=== PATIENT | female | born 1965 | race Caucasian/White ===

== ENCOUNTER 2022-03-15 15:10 | Inpatient (IN) | payer SELFPAY ==
[~2022-03-15] VITALS: Ht 154.9 cm; Wt 62.6 kg
--- NOTE | 2022-03-15 15:25 | NUR ---
UA SPECIMEN COLLECTED
--- NOTE | 2022-03-15 15:26 | NUR ---
BIBS FOR C/O RIGHT SIDED WEAKNESS 1HR DIRECTOR DIGITAL CATALOGUE. ELEVATED BP 206/112. PT HAS EQUAL GRIZZLYMAN BILATERALLY, ABLE TO AMBULATE ON HER OWN. A&OX4. ATTACHED TO MONITOR, MD GARDNER. DR BULL AT BEDSIDE. AWAITING MD BYRD.
--- NOTE | 2022-03-15 15:32 | NUR ---
IV ESTABLISHED L AC 20G. LABS DRAWN AND SENT.
[2022-03-15] MEDS ORDERED: LABETALOL HCL IV 100MG VIAL ONE (15:42)
[2022-03-15] MEDS ORDERED: LORAZEPAM INJ 2 MG/ML VIAL ONE (15:43)
[2022-03-15 15:51] LABS: BASOPHILS % (AUTO) 0.5 % (0.0-2.0); EOSINOPHILS % (AUTO) 0.5 % (0.0-6.0); HEMATOCRIT 38 % (33-45); HEMOGLOBIN 12.7 g/dL (11.5-14.8); LYMPHOCYTES # (AUTO) 2.4 K/uL (0.8-4.8); LYMPHOCYTES % (AUTO) 38.1 % (20.0-44.0); MEAN CORPUSCULAR HGB CONC 34 g/dl (31.0-36.0); MEAN CORPUSCULAR VOLUME 94 fL (82-100); MONOCYTES # (AUTO) 0.5 K/uL (0.1-1.30); MONOCYTES % (AUTO) 7.5 % (2.0-12.0); NEUTROPHILS # (AUTO) 3.4 K/uL (1.8-8.9); NEUTROPHILS % (AUTO) 53.4 % (43.0-81.0); PLATELET COUNT (AUTO) 254 K/uL (150-450); RED BLOOD CELL COUNT(AUTO) 4.05 MIL/uL (4.0-5.2); WHITE BLOOD COUNT (AUTO) 6.4 K/uL (4.3-11.0)
[2022-03-15] MEDS ORDERED: LORAZEPAM INJ 2 MG/ML VIAL IV ONE (16:00)
[2022-03-15] MEDS ORDERED: LABETALOL HCL IV 100MG VIAL IV ONE ×2 (16:00→17:30)
[2022-03-15 16:07] LABS: ALANINE AMINOTRANSFERASE 27 U/L (12-78); ALBUMIN 4.1 g/dL (3.4-5.0); ALKALINE PHOSPHATASE 97 U/L (46-116); ASPARTATE AMINOTRANSFERASE 17 U/L (15-37); BILIRUBIN,DIRECT 0.1 mg/dL (0.0-0.2); BILIRUBIN,TOTAL 0.3 mg/dL (0.2-1.0); CALCIUM, SERUM 9.2 mg/dL (8.5-10.1); CARBON DIOXIDE 32 mmol/L (21-32); CHLORIDE 98 mmol/L (98-107); GLUCOSE 116 mg/dL (74-106); POTASSIUM 3.5 mmol/L (3.5-5.1); SODIUM SERUM 133 mmol/L (136-145); TOTAL PROTEIN, SERUM 7.8 g/dL (6.4-8.2); UREA NITROGEN, BLOOD 18 mg/dL (7-18)
--- NOTE | 2022-03-15 16:09 | NUR ---
PATIENT RETURNED FROM CT VIA [facility]
[2022-03-15] MEDS ORDERED: IV NS 0.9% 250 ML IV ONE (16:19)
[2022-03-15] MEDS ORDERED: CT SWABBABLE VALVE TRANS SET 1 EA INFUS.SET MC ONE (16:19)
[2022-03-15] MEDS ORDERED: IOHEXOL-350 100 ML VIAL IV ONE (16:19)
--- NOTE | 2022-03-15 16:19 | NUR ---
CALLED CODE STROKE
--- NOTE | 2022-03-15 16:21 | NUR ---
PT TO CT ON GURNEY VIA ACLS PROTOCALS
--- NOTE | 2022-03-15 16:24 | NUR ---
TELE NEUROLOGIST IS BISHNU HENRIQUEZ
--- NOTE | 2022-03-15 16:29 | NUR ---
PT BACK FROM CT.
--- NOTE | 2022-03-15 16:41 | NUR ---
COVID TEST COLLECTED AND SENT
--- NOTE | 2022-03-15 16:53 | NUR ---
DR. JOSEPH SPEAKING WITH DR. BULL
[2022-03-15] MEDS ORDERED: LABETALOL 20 MG/4 ML VIAL IV ONE (17:00)
[2022-03-15] MEDS ORDERED: ASPIRIN 325 MG TABLET ONE (17:23)
[2022-03-15] MEDS ORDERED: ASPIRIN 325 MG TABLET PO ONE (17:30)
--- NOTE | 2022-03-15 18:07 | NUR ---
ROOM 328-2
[2022-03-15] MEDS ORDERED: hydrALAZINE HCL IV 20 MG VIAL ONE (18:12)
[2022-03-15] MEDS ORDERED: hydrALAZINE HCL IV 20 MG VIAL IV ONE (18:30)
--- NOTE | 2022-03-15 18:48 | NUR ---
REPORT GIVEN TO NURSE SHANON FOR ALPES[facility]
--- NOTE | 2022-03-15 19:08 | NUR ---
[facility] CALLED BEVELING MACHINE OPERATOR PAGED.
--- NOTE | 2022-03-15 19:29 | NUR ---
PT TRANSPORTED TO 3W WITH ACLS PROTOCOL IN PLACE
[2022-03-15 20:00] VITALS: BP 136/89
--- NOTE | 2022-03-15 20:00 | NUR ---
TANK BUILDER AND ERECTORROVING HAULER NOTES: RECEIVED PATIENT VIA GURNEY FROM ER ON STABLE CONDITION, PATIENT WAS PLACED IN BED COMFORTABLY ON ROOM AIR SKIN ASSESSMENT DONE NO SKIN ISSUES WAS NOTED, INVENTORY LIST WAS DONE AND DOCUMENTED, ORIENTED TO PLACE, REMIND PATIENT TO USE CALL LIGHTS WHEN NEEDED ASSISTANCE ON TELE MONITORING SR-72, NO COMPLAIN OF PAIN AND DISCOMFORT , AMBULATORY BRP WITH SUPERVISION, PATIENT KEPT CLEAN AND DRY ALL NEEDS MET WILL CONTINUE TO MONITOR.
[2022-03-15] MEDS ORDERED: ONDANSETRON HCL/PF 4 MG/2 ML VIAL IVP PRN (20:30)
[2022-03-15] MEDS ORDERED: ACETAMINOPHEN 325 MG TABLET PO PRN (20:30)
[2022-03-15] MEDS ORDERED: MAGNESIUM HYDROXIDE 30 ML UDC PO PRN (20:30)
[2022-03-15] MEDS ORDERED: ZOLPIDEM TARTRATE 5 MG TABLET PO PRN (20:30)
[2022-03-15] MEDS ORDERED: MAG HYDROX/AL HYDROX/SIMETH 30 ML UDC PO PRN (20:30)
[2022-03-15] MEDS ORDERED: Z GUARD REMEDY 4 OZ OINT TP PRN (20:30)
[2022-03-15] MEDS: BLOOD SUGAR DIAGNOSTIC 1 EACH STRIP IN SCH (22:00)
[2022-03-15] MEDS: ATORVASTATIN 40 MG TABLET PO SCH (23:18)
--- NOTE | 2022-03-15 23:36 | NUR ---
RN NOTES: BS-114- NO INSULIN GIVEN PER SLIDING SCALE
[2022-03-15 23:59] LABS: BASOPHILS % (AUTO) 0.6 % (0.0-2.0); EOSINOPHILS % (AUTO) 0.4 % (0.0-6.0); HEMATOCRIT 35 % (33-45); HEMOGLOBIN 11.7 g/dL (11.5-14.8); LYMPHOCYTES # (AUTO) 2.4 K/uL (0.8-4.8); MEAN CORPUSCULAR HGB CONC 34 g/dl (31.0-36.0); MEAN CORPUSCULAR VOLUME 93 fL (82-100); MONOCYTES # (AUTO) 0.5 K/uL (0.1-1.30); MONOCYTES % (AUTO) 7.1 % (2.0-12.0); NEUTROPHILS # (AUTO) 4.2 K/uL (1.8-8.9); NEUTROPHILS % (AUTO) 57.9 % (43.0-81.0); PLATELET COUNT (AUTO) 224 K/uL (150-450); RED BLOOD CELL COUNT(AUTO) 3.69 MIL/uL (4.0-5.2); WHITE BLOOD COUNT (AUTO) 7.2 K/uL (4.3-11.0)
[2022-03-16] VITALS: BP 115/60
[2022-03-16 00:25] LABS: CALCIUM, SERUM 8.9 mg/dL (8.5-10.1); CREATININE 0.9 mg/dL (0.6-1.3); POTASSIUM 3.8 mmol/L (3.5-5.1)
[2022-03-16 00:38] LABS: ALBUMIN 3.5 g/dL (3.4-5.0); BILIRUBIN,TOTAL 0.4 mg/dL (0.2-1.0); THYROID STIMULATING HORMONE 15.509 uIU/mL (0.358-3.74); TOTAL PROTEIN, SERUM 6.6 g/dL (6.4-8.2)
--- NOTE | 2022-03-16 00:48 | NUR ---
RN NOTES: BS-112 NO INSULIN GIVEN
[2022-03-16 04:00] VITALS: BP 128/61
[2022-03-16 04:03] VITALS: BP 128/61
[2022-03-16] MEDS: BLOOD SUGAR DIAGNOSTIC 1 EACH STRIP IN SCH ×8 (06:00→21:32)
--- NOTE | 2022-03-16 06:00 | NUR ---
RN NOTES BS-111 NO INSULIN GIVEN
[2022-03-16 06:19] LABS: BASOPHILS % (AUTO) 0.7 % (0.0-2.0); EOSINOPHILS % (AUTO) 0.7 % (0.0-6.0); HEMATOCRIT 35 % (33-45); HEMOGLOBIN 11.6 g/dL (11.5-14.8); LYMPHOCYTES # (AUTO) 1.6 K/uL (0.8-4.8); MEAN CORPUSCULAR HGB CONC 34 g/dl (31.0-36.0); MEAN CORPUSCULAR VOLUME 95 fL (82-100); MONOCYTES # (AUTO) 0.4 K/uL (0.1-1.30); MONOCYTES % (AUTO) 7.5 % (2.0-12.0); NEUTROPHILS # (AUTO) 3.5 K/uL (1.8-8.9); NEUTROPHILS % (AUTO) 62.1 % (43.0-81.0); PLATELET COUNT (AUTO) 232 K/uL (150-450); RED BLOOD CELL COUNT(AUTO) 3.65 MIL/uL (4.0-5.2); WHITE BLOOD COUNT (AUTO) 5.6 K/uL (4.3-11.0)
--- NOTE | 2022-03-16 06:30 | NUR ---
MS RN CLOSING NOTES: PATIENT SLEEP IN BED COMFORTABLY, BED IN LOW POSITION CALL LIGHTS WITHIN REACH, NOC OMPLAIN OF PAIN AND DISCOMFORT AT THIS TIME, ON ROOM AIR SATURATING WELL, PATIENT IS A/OX4 ABLE TO MAKE NEEDS KNOWN, ON TELE [id number], KEPT CLEAN AND DRY ALL NEEDS MET WILL CONTINUE TO MONITOR
[2022-03-16 07:07] LABS: CALCIUM, SERUM 9.3 mg/dL (8.5-10.1); CREATININE 0.9 mg/dL (0.6-1.3); MAGNESIUM 2.3 mg/dL (1.8-2.4); PHOSPHORUS 4.4 mg/dL (2.5-4.9)
--- NOTE | 2022-03-16 07:18 | NUR ---
PIVOT END POLISHER OPENING NOTE PATIENT IN BED AWAKE, ALERT AND ORIENTED. OBEYS COMMANDS. PATIENT ON ROOM AIR WITH NO SIGNS OF RESPIRATORY DISTRESS. NO COMPLAIN OF PAIN OR DISCOMFORT. WITH SOME NUMBNESS AND/OR TINGLING SENSATION ON THE RIGHT HAND AND UPPER EXT AND LOWER EXT. LESS THAN YESTERDAY. PATIENT ON TELE BOX WITH READING SR AT 80 BPM. COMFORT MEASURES PROVIDED. WITH LFA G20 WITH NS RUNNING AT 75ML/HR. SAFETY MEASURES ENSURED WITH BED ON LOWEST LOCKED POSITION. SIDERAILS RAISED AND CALL LIGHT AND TABLE WITHIN REACH AT ALL TIMES. IN STABLE CONDITION. COMFORTABLY, BED IN LOW POSITION CALL LIGHTS WITHIN REACH, NOC OMPLAIN OF PAIN AND DISCOMFORT AT THIS TIME, ON ROOM AIR SATURATING WELL, PATIENT IS A/OX4 ABLE TO MAKE NEEDS KNOWN, ON TELE [id number], KEPT CLEAN AND DRY ALL NEEDS MET WILL CONTINUE TO MONITOR
[2022-03-16] MEDS: ASPIRIN EC 325 MG TABLET.DR PO SCH (08:27)
[2022-03-16 12:00] VITALS: BP 128/70
--- NOTE | 2022-03-16 14:09 | NUR ---
SS Note: SS received consult for stroke. Pt. Is a 56-year-old female who demonstrates adequate insight to the reason for hospitalization. Per pt., she was experiencing right side weakness, so the ambulance was called by neighbor Joseph. Pt. was oriented x4, alert, and cooperative. During interview, pt. was capable of following directions and appeared unkempt. Pt.s speech was at a normal rate and pt.s mood was elevated. Pt. reported no hx of mental health, substance abuse, suicidal ideation, or homicidal ideation. Pt. denies auditory hallucinations, visual hallucinations, paranoia, or delusions. MARCE explored pt.s living situation. Per pt., she lives alone [[address] [place] [address]]. Pt. stated that her 8 months ago and now she is living alone. Pt. has a son, but he lives outside of [place]. Per pt., her son is very supportive and visits her when he can. Pt. is ambulatory and is independent with her ADLs. MARCE explored pt.s stroke hx. Per pt., she does not have a hx of stroke and this is the first-time experiencing weakness on the left side of her body. Pt. stated that she is still feeling numbness on the right side of her body. There is no discharge date currently. Plan: MARCE provided available resources and pt. accepted. Upon discharge, per pt., she would want to return home [[address] [place] [address]]. MARCE did a PHQ9 on pt. and she scored a 0, there is no need for a psych consult. Resources Provided: Stroke Empowerment Packet.
[2022-03-16 16:00] VITALS: BP 155/77
--- NOTE | 2022-03-16 18:21 | NUR ---
SCARF AND ANNEAL OPERATOR CLOSING NOTES PATIENT IN BED AWAKE, ALERT AND ORIENTED, ABLE TO MAKE NEEDS KNOWN. PATIENT ON ROOM AIR WITH NO SIGNS OF RESPIRATORY DISTRESS. NO COMPLAINTS OF PAIN OR DISCOMFORT. PATIENT STATES NUMBNESS AND/OR TINGLING SENSATION ON THE RIGHT HAND AND UPPER EXT AND LOWER EXT. PATIENT ON TELE READING SR AT 84 BPM. COMFORT MEASURES PROVIDED. WITH LFA G20, NS RUNNING AT 75ML/HR. SAFETY MEASURES ENSURED WITH BED ON LOWEST LOCKED POSITION. SIDERAILS RAISED, CALL LIGHT AND TABLE WITHIN REACH AT ALL TIMES, WILL ENDORSE TO PM SHIFT.
--- NOTE | 2022-03-16 19:35 | NUR ---
MS RN OPENING NOTES: RECEIVED PATIENT IN BED AAOX4 NEPALI SPEAKING.GENIE WELL ON RM AIR NO SIGN SOB/DISTRESS NOTED.BREATHING EVEN AND UNLABORED.IV ACCESS RFA #20G SALINE LOCKED, INTACT, PATENT AND FLUSHING WELL.FALL AND SAFETY MEASURES MAINTAINED: BED ALARM ON BED IN LOW AND LOCKED POSITION, CALL LIGHT WITHIN EASY REACH, SIDE RAILS UP X2. WILL CONTINUE TO MONITOR.
[2022-03-16 20:00] VITALS: BP 137/70
[2022-03-16] MEDS: ATORVASTATIN 40 MG TABLET PO SCH (21:13)
[2022-03-17] VITALS (7 sets, daily range): BP systolic 113–153; BP diastolic 65–94
[2022-03-17] MEDS: BLOOD SUGAR DIAGNOSTIC 1 EACH STRIP IN SCH ×9 (00:23→23:51)
--- NOTE | 2022-03-17 06:16 | NUR ---
MS RN CLOSING NOTES: PATIENT IN BED SLEEPING GENIE WELL ON RM AIR NO SIGN SOB/DISTRESS NOTED.BREATHING EVEN AND UNLABORED.IV ACCESS RFA #20G SALINE LOCKED, INTACT, PATENT AND FLUSHING WELL.FALL AND SAFETY MEASURES MAINTAINED: BED ALARM ON BED IN LOW AND LOCKED POSITION, CALL LIGHT WITHIN EASY REACH, SIDE RAILS UP X2. WILL CONTINUE TO MONITOR.
[2022-03-17] MEDS: ASPIRIN EC 325 MG TABLET.DR PO SCH (09:46)
--- NOTE | 2022-03-17 12:06 | NUR ---
refused insulin coverage.
[2022-03-17] MEDS: METFORMIN 500 MG TABLET PO SCH (17:45)
--- NOTE | 2022-03-17 18:00 | NUR ---
alert and oriented x4,no complaints offered.
--- NOTE | 2022-03-17 19:45 | NUR ---
MS RN OPENING NOTES RECEIVED PATIENT IN BED AAOX4 FAROESE SPEAKING. BREATHING EVEN AND UNLABORED. TOLERATING ROOM AIR WELL, NO SOB NOTED; NO DISTRESS NOTED; ABLE TO MAKE NEEDS KNOWN; TELE MONITOR READS SINUS RHYTHM 63BPM; PATIENT GOES SINUS SO WHEN ASLEEP; CHARGE AWARE; IV ACCESS RFA #20G SALINE LOCKED, INTACT, PATENT AND FLUSHING WELL. SAFETY PRECAUTIONS MAINTAINED: BED IN LOW POSITION, SIDE RAILSX2, CALL LIGHT WITHIN EASY REACH, SIDE RAILS UP X2. WILL CONTINUE PLAN OF CARE Addendum: 03/17/22 at 2357 by MURIEL VIERA RN COMMERCIAL PROPERTY ADMINISTRATOR NOTE
[2022-03-17] MEDS: ATORVASTATIN 40 MG TABLET PO SCH (21:24)
--- NOTE | 2022-03-17 23:56 | NUR ---
CONTENT STRATEGIST NOTE PATIENT HAS SCHEDULED ACHS AND Q6 ACCU CHECK, CONCAVER MD MADE AWARE; PER CONCAVER KELLEY MERAZ Q6 ACCU CHECK; ORDERS RECEIVED AND CARRIED OUT; CHARGE NURSE MADE AWARE; PATIENT MADE AWARE
[2022-03-18] VITALS: BP 146/67
[2022-03-18 04:00] VITALS: BP 159/78
[2022-03-18] MEDS: BLOOD SUGAR DIAGNOSTIC 1 EACH STRIP IN SCH ×2 (06:33→12:41)
--- NOTE | 2022-03-18 06:59 | NUR ---
LOAD HAUL DUMP OPERATOR CLOSING NOTES PATIENT IN BED, RESTING COMFORTABLY, REPORTED TO HAVE SLEPT WELL; AAOX4 ALBANIAN SPEAKING. BREATHING EVEN AND UNLABORED. TOLERATING ROOM AIR WELL, NO SOB NOTED; NO DISTRESS NOTED; ABLE TO MAKE NEEDS KNOWN; TELE MONITOR READS SINUS RHYTHM 80BPM;; CHARGE AWARE; IV ACCESS RFA #20G SALINE LOCKED, INTACT, PATENT AND FLUSHING WELL. ALL NEEDS RENDERED; SAFETY PRECAUTIONS MAINTAINED: BED IN LOW POSITION, SIDE RAILSX2, CALL LIGHT WITHIN EASY REACH, SIDE RAILS UP X2. WILL ENDORSE ALPESH TO ONCOMING SHIFT
[2022-03-18 08:00] VITALS: BP 147/81
[2022-03-18] MEDS: METFORMIN 500 MG TABLET PO SCH (08:36)
[2022-03-18] MEDS: ASPIRIN EC 325 MG TABLET.DR PO SCH (08:36)
[2022-03-18] MEDS ORDERED: METF-440 PO (10:42)
[2022-03-18] MEDS ORDERED: ATOR40TA PO (10:42)
[2022-03-18] MEDS ORDERED: LISI2.5T2 PO (10:42)
[2022-03-18] MEDS ORDERED: ASPI-1100 PO (10:42)
--- NOTE | 2022-03-18 13:05 | NUR ---
RECEIVED PT. IN AM.VS STABLE.NO COMPLAINTS OFFERED,STATES SOME NUMBNESS LEFT IN RT. HAND.DR. BURCH IN AND GAVE DC ORDER.CASE MGMT. CALLED SON TO MAKE SURE HE KNOWS PT. GOING HOME AND AWARE OF PRESCRIPTIONS TO BE FILLED AT [facility].PT. STATED [facility] CONTACTED HER WITH READY RXS,HEP LOCK OUT.ALL PAPERS SIGNED.BELONGING SHEET SIGNED ,SON CONTACTED [facility] AND PT. WALKED DOWN TO LOBBY TO BE PICKED UP BY [facility].PT. ACCOMPANIED BY TERRITORY SALES REPRESENTATIVE.
== END 2022-03-18 12:30 | disposition home or self-care (01) | DRG 65 ==
LOC: ER 15:23 → EDSEX 15:23 → TELE 18:35 → MED 03-18 10:02
PROVIDERS: ADMIT Family Medicine; ATTEND Internal Medicine
DX: I63.9 Cerebral infarction, unspecified (principal); E87.1 Hypo-osmolality and hyponatremia; J98.11 Atelectasis; I16.9 Hypertensive crisis, unspecified; Z20.822 Contact with and (suspected) exposure to COVID-19; R29.701 NIHSS score 1; I10 Essential (primary) hypertension; R94.6 Abnormal results of thyroid function studies; E11.65 Type 2 diabetes mellitus with hyperglycemia
CPT/HCPCS: 36415; 70450-TC; 70496-TC; 70498-TC; 71045-TC; 80048-TC; 80053-TC; 80061-TC; 80076-TC; 82962-TC; 83735-TC; 83880; 84100-TC; 84439-TC; 84443-TC; 84484-TC; 85025-TC; 85652-TC; 85730-TC; 87081-TC; 92526; 92611-TC; 93307-TC; 97116-TC; 97530-TC; C9803; G0378; J0360; J2060; J3490; J7050; Q9967